=== PATIENT | female | born 1995 | race Hispanic/Latino ===

== ENCOUNTER 2018-01-23 17:40 | Emergency (ER) | payer MEDICAID, SELFPAY ==
[2018-01-23 18:08] LABS: #Basophils 0.1 thou/uL (0.0-0.2); #Lymphocytes 1.5 thou/uL (1.20-3.40); #Monocytes 0.7 thou/uL (0.11-0.59); #Neutrophils 7.1 thou/uL (1.40-6.50); %Basophils 0.8 % (0.0-1.0); %Eosinophils 0.2 % (0.0-10.0); %Lymphocytes 15.7 % (21.0-51.0); %Monocytes 7.1 % (0.0-10.0); %Neutrophils 76.2 % (42.0-75.0); Hemoglobin 13.4 g/dL (12.0-16.0); Mean Corpuscular HGB CONC 33.5 g/dL (32.0-36.0); Mean Corpuscular Hemoglobin 30.3 pg (27.0-31.0); Mean Corpuscular Volume 90.5 fl (81.0-99.0); Platelet Count 270 thou/uL (130-400); RBC Distribution Width 11.9 % (11.5-14.5); Red Blood Cell (RBC) Count 4.43 mill/uL (4.20-5.40); White Blood Cell (WBC) Count 9.3 thou/uL (4.8-10.8)
[2018-01-23 18:41] LABS: ALT (SGPT) 12 U/L (8-55); AST (SGOT) 19 U/L (5-34); Albumin 4.3 g/dL (3.5-5.0); Alkaline Phosphatase 57 U/L (40-150); Anion Gap 10 mmol/L (10-20); BUN (Urea Nitrogen) 10 mg/dL (7.0-18.7); Bilirubin, Total 0.4 mg/dL (0.2-1.2); Calc. Creatinine Clearance 0 mL/min (70-130); Calcium 9.6 mg/dL (7.8-10.44); Carbon Dioxide 24 mmol/L (22-29); Chloride 106 mmol/L (98-107); Estimated GFR-MDRD Greater than 90; Globulin 3.2 g/dL (2.4-3.5); Glucose 82 mg/dL (70-105); Potassium 4.4 mmol/L (3.5-5.1); Protein, Total 7.5 g/dL (6.0-8.3); Sodium 136 mmol/L (136-145)
[2018-01-23 19:11] LABS: Bilirubin Negative (Negative); Blood, Urine Moderate (Negative); Clarity CLOUDY (Clear); Glucose, Urine (Dipstick) Negative (Negative); Leukocyte Large (Negative); Nitrite Negative (Negative); Protein, Urine (Dipstick) Negative (Neg-Trace); Specific Gravity, Urine 1.011 (1.002-1.036)
[2018-01-23 19:13] LABS: Bacteria/HPF 4+ HPF (None Seen); Hyaline Casts/LPF 0-3 HYALINE CAST LPF (0-3 Hyaline); Pathc Cast-AUWi Flag 0.27 (0-2.49); Squamous Epithelial 0-3 HPF (0-3)
--- NOTE | 2018-01-23 21:26 | ULT ---
OBSTETRIC SONOGRAM TRANSABDOMINAL AND TRANSVAGINAL IMAGING 01/23/18 HISTORY: First trimester . Vaginal bleeding. FINDINGS: The urinary bladder is decompressed. Gestational sac within the fundal myometrium contains a tiny yol k sac and pole. Measurements correlate with 5 weeks, 6 days gestational age. No heart motion is yet visible. No free fluid is apparent within the pelvis. Small amount of subchorionic hemorrhage is visible. Right ovary is 3.4 cm. Left is 3.2 cm. Each has a normal sonographic appearance and demonst rates good color and spectral doppler flow. IMPRESSION: Single early intrauterine gestation. Estimated gestational age is 5 weeks, 6 days. POS: [facility]
[2018-01-26 14:35] LABS: Chlamydia by PCR Not Detected (NotDetected); GC by PCR Not Detected (NotDetected)
== END 2018-01-23 21:10 | disposition home or self-care (01) ==
LOC: ERS 17:40
DX: O26.851 Spotting complicating pregnancy, first trimester (principal); O23.41 Unspecified infection of urinary tract in pregnancy, first trimester; O99.341 Other mental disorders complicating pregnancy, first trimester; F41.9 Anxiety disorder, unspecified; F32.9 Major depressive disorder, single episode, unspecified; Z3A.01 Less than 8 weeks gestation of pregnancy
CPT/HCPCS: 36415; 76856; 80053; 81003; 81015; 84702; 85025; 87077; 87086; 87186; 87491; 87591

== ENCOUNTER 2018-08-17 16:17 | Emergency (ER) | payer MEDICAID, OTHER ==
--- NOTE | 2018-08-17 19:02 | ULT ---
BILATERAL LOWER EXTREMITY VENOUS DOPPLER EXAM: 08/17/18 HISTORY: Shortness of breath. Elevated D-dimer. Leg pain. Real time color doppler evaluation of the right and left lower extremity was performed from groin to calf. This includes evaluation of the common femoral, superficial and profunda femoral, saphenous pop liteal and posterior tibial veins. There is normal compressibility and augmentation. There is no evid ence of DVT. Flow is slow in both lower extremities but this is nonspecific. IMPRESSION: No evidence of DVT of either lower extremity. POS: [facility]
== END 2018-08-17 20:13 | disposition home or self-care (01) ==
LOC: ERS 16:17
DX: O99.89 Other specified diseases and conditions complicating pregnancy, childbirth and the puerperium (principal); R06.02 Shortness of breath; O99.343 Other mental disorders complicating pregnancy, third trimester; F41.9 Anxiety disorder, unspecified; Z3A.35 35 weeks gestation of pregnancy; Z79.899 Other long term (current) drug therapy
CPT/HCPCS: 93970; 94760

== ENCOUNTER 2018-09-14 10:06 | Inpatient (IN) | payer OTHER ==
[2018-09-14 10:48] VITALS: BMI 26.2
[2018-09-14] MEDS ORDERED: Butorphanol Tartrate 1 MG/ML VIAL IM PRN (11:04)
--- NOTE | 2018-09-14 11:07 | PDOC.LDHP ---
Labor and Delivery H&P HPI: Patient of cornelia Mares EGA 39 weeks CC: irregular contractions HPI: 3 yo G1 at full term with irregular contractions, no VB, no LOF; good FM, No OLEA, states feels "chest tight" with contractions. No recent trauma. No visual changes. Review of Systems: complete ROS done and as per HPI Current gestational age (weeks): 39 Due date: 09/21/18 Dating criteria: last menstrual period Grav: 1 Para: 0 Current complications: none Abnormal US findings: No Past Medical History: HX Panic attacks Current medications: pre-estefania vitamins Previous surgical history: other (eye surgery) Allergies/Adverse Reactions: Allergies Allergy/AdvReac Type Severity Reaction Status Date / Time No Known Drug Allergies Allergy Verified 09/14/18 10:43 - Physical Exam Vital signs reviewed and normal: yes (first BP was 134/94; then 127/89; 100%; pulse 103; afebrile) General: NAD Heart: RRR Lungs: CTAB Abdomen: gravid Extremeties: no edema FHT: category 1 [place] contractions every: evry 2-7 minutes; irregular - Vaginal Exam cm dilated: 1 Effacement: 25% Station: -2 - Assessment Latemt labor at full term; GBS neg; first BP with diastolic just over 90 - Plan Plan: observation in L&D (check BPs for 2 hrs; recheck CX in 2 hrs;check CMP and CBC as part of eval; pain meds prn)
[2018-09-14 11:39] LABS: #Basophils 0.1 thou/uL (0.0-0.2); #Eosinphils 0.1 thou/uL (0.0-0.7); #Monocytes 0.4 thou/uL (0.11-0.59); #Neutrophils 4.7 thou/uL (1.40-6.50); %Basophils 1.2 % (0.0-1.0); %Eosinophils 0.9 % (0.0-10.0); %Lymphocytes 16.4 % (21.0-51.0); %Monocytes 6.5 % (0.0-10.0); %Neutrophils 75.1 % (42.0-75.0); Hemoglobin 10.1 g/dL (12.0-16.0); Mean Corpuscular HGB CONC 33.4 g/dL (32.0-36.0); Mean Corpuscular Hemoglobin 26.4 pg (27.0-31.0); Mean Corpuscular Volume 79.2 fL (78.0-98.0); Mean Platelet Volume 7.6 fL (7.4-10.4); Platelet Count 248 thou/uL (130-400); RBC Distribution Width 13.2 % (11.5-14.5); Red Blood Cell (RBC) Count 3.83 mill/uL (4.20-5.40); White Blood Cell (WBC) Count 6.3 thou/uL (4.8-10.8)
[2018-09-14 11:58] LABS: ALT (SGPT) 9 U/L (8-55); AST (SGOT) 16 U/L (5-34); Albumin 3.2 g/dL (3.5-5.0); Alkaline Phosphatase 264 U/L (40-150); Anion Gap 9 mmol/L (10-20); BUN (Urea Nitrogen) 6 mg/dL (7.0-18.7); Bilirubin, Total 0.4 mg/dL (0.2-1.2); Calc. Creatinine Clearance 121 mL/min (70-130); Calcium 8.6 mg/dL (7.8-10.44); Carbon Dioxide 22 mmol/L (22-29); Chloride 105 mmol/L (98-107); Estimated GFR-MDRD Greater than 90; Globulin 3.2 g/dL (2.4-3.5); Glucose 98 mg/dL (70-105); Potassium 4.2 mmol/L (3.5-5.1); Protein, Total 6.4 g/dL (6.0-8.3); Sodium 132 mmol/L (136-145)
--- NOTE | 2018-09-14 12:06 | PDOC.EVN ---
Event Note - Event Note Event Note: CBC and CMP are normal
--- NOTE | 2018-09-14 13:10 | PDOC.EVN ---
Event Note - Event Note Event Note: Recheck is unchanged but borderline pressures. I will admit to Iesha Light. I will order EKG for "chest tightness" with contractions.
[2018-09-14] MEDS ORDERED: HYDROcodone/Acetaminophen 5/325 mg Tablet PO PRN ×2 (13:12)
[2018-09-14] MEDS ORDERED: Promethazine HCl 25 MG/ML VIAL IM PRN ×2 (13:12→20:17)
[2018-09-14] MEDS ORDERED: Ibuprofen 800 MG TAB PO PRN (13:12)
[2018-09-14] MEDS ORDERED: NS / Oxytocin 40 units/1000ml 1,000 ML IV PRN (13:12)
[2018-09-14] MEDS ORDERED: Lidocaine 1% (PF) 30 ML VIAL SC PRN (13:12)
[2018-09-14] MEDS: Lactated Ringer's 1,000 ML IV SCH ×2 (13:40→21:22)
[2018-09-14] MEDS ORDERED: NIFEdipine 10 MG CAP ONE (14:32)
[2018-09-14] MEDS ORDERED: NIFEdipine XL 30 MG TAB PO SCH (14:33)
[2018-09-14 14:40] LABS: Syphilis Antibody Nonreactive (Nonreactive); Syphilis Antibody Index 0.03 S/CO (<1.00 Non-Reactive)
[2018-09-14 14:41] LABS: HBSAg Index 0.19 S/CO (0-0.99); HIV (1/2) Antibody/Antigen Non-Reactive (NonReactive); HIV 1/2 INDEX 0.17 S/CO (<1.00); Hep B Surf Ag Non-Reactive S/CO (NonReactive)
--- NOTE | 2018-09-14 14:44 | PDOC.EVN ---
Event Note - Event Note Event Note: 09/14/2018 at appx 14:30 Notified by patient's nurse that BP readings 30 minutes apart >160/110. Patient asymptomatic and denies RUQ pain, edema, headaches, scotoma, or shortness of breath currently. Will order 20 mg of Nifedipine for BP control. Order placed for urine protein and urine creatinine to assess for pre-eclampsia. Continue to monitor BP. Monitor for signs/symptoms or pre-eclampsia with severe features. Marika Rhodes, DO PGY-2 <Marika Rhodes - Last Filed: 09/14/18 14:39> - Event Note Event Note: Agree. Iesha light given update on status. Once intrapartum, will consider MagSulfate if pressures remain sever range. Will also reeval for cervical balloon as yareli too much for cytotec protocol <Pardeep Kurtz - Last Filed: 09/14/18 14:54>
[2018-09-14] MEDS ORDERED: NIFEdipine 10 MG CAP PO SCH (14:45)
[2018-09-14 15:01] LABS: Creatinine, Urine 27.11 mg/dL (47-110)
--- NOTE | 2018-09-14 16:44 | PDOC.EVN ---
Event Note - Event Note Event Note: OBGYN Attending: Cervical Balloon Placed by and [place]: See [place] note Placed at 1630 No complications 80ml per balloon Placed per IFU instructions with speculum BP ok No ROM upon insertion
[2018-09-14] MEDS: Butorphanol Tartrate 1 MG/ML VIAL SLOW IVP PRN ×2 (16:46→18:10)
--- NOTE | 2018-09-14 17:03 | PDOC.EVN ---
Event Note - Event Note Event Note: Patient not good candidate for cytotec or pitocin. >3 contractions in 10 minute period. No cervical change since admission. Dilation still 1 cm. Balloon placed without difficulty after visualizing cervical os with use of speculum. 80 cc's in vaginal and uterine balloon. Stadol given for pain relief after procedure. Procedure done at approximately 16:40. Marika Rhodes, PGY-2
--- NOTE | 2018-09-14 17:19 | PDOC.EVN ---
Event Note - Event Note Event Note: Patient with urine protein/ urine creatinine ratio of 2.11. Patient meets definition for severe preeclampsia based on BP >160/110 mmHg. Will start on Mg once intrapartum. Marika Rhodes DO PGY-2 <Marika Rhodes - Last Filed: 09/14/18 17:14> - Event Note Event Note: Info relayed to cornelia brown. MagSo4 in labor due to BP criteria met previously. Amount of proteinuria no longer a criteria for severe HTN/PRE <Pardeep Kurtz - Last Filed: 09/14/18 18:43>
[2018-09-14] MEDS ORDERED: Fentanyl 4 mcg/Bup 0.1% Cadd 100 ML ONE (19:11)
[2018-09-14] MEDS ORDERED: Acetaminophen 325 MG TAB PO PRN (20:17)
[2018-09-14] MEDS ORDERED: diphenhydrAMINE 50 MG/ML VIAL IVP PRN (20:17)
[2018-09-14] MEDS ORDERED: Ondansetron HCl/PF 4 MG/2 ML Vial IVP PRN (20:17)
[2018-09-14] MEDS ORDERED: ePHEDrine/0.9% NaCl/PF SYRINGE 50 mg/10 ml SLOW IVP PRN (20:17)
[2018-09-14] MEDS ORDERED: Naloxone HCl 0.4 mg/ml Vial IVP PRN ×2 (20:17)
[2018-09-14] MEDS ORDERED: Lactated Ringer's 500 ML IV PRN (20:17)
[2018-09-14] MEDS ORDERED: Eucerin (Mineral Oil/Petrolatum,White) 30 gm Jar TOP PRN (20:17)
[2018-09-14] MEDS ORDERED: Communication Order-Pharmacy FS SCH (20:30)
[2018-09-15] MEDS: Lactated Ringer's 1,000 ML IV SCH ×2 (02:09→10:16)
[2018-09-15] MEDS ORDERED: Fentanyl 4 mcg/Bup 0.1% Cadd 100 ML ONE ×3 (03:58→16:29)
[2018-09-15] MEDS: NS w/ Oxytocin 10 units 500 ML IV SCH (05:22)
--- NOTE | 2018-09-15 05:40 | PDOC.EVN ---
Event Note - Event Note Event Note: Balloon removed at approximately 4:30 AM. Cervical check at that time /-2. Pitocin started around 5:00 AM. Patient comfortable. BP was 153/96. Pulse of 97. Patient with BP's >160/110 periodically throughout the night that resolve with position changes and cuff placement. Continue to monitor. Mg to be started intrapartum. Marika Rhodes, DO PGY-2
[2018-09-15] MEDS ORDERED: Calcium Gluc 4.6 MEQ/10 ML (100 MG/ML) SLOW IVP PRN (06:24)
--- NOTE | 2018-09-15 06:25 | PDOC.EVN ---
Event Note - Event Note Event Note: Doing well. I have ordered Mag Sulfate as now on pitocin.
[2018-09-15] MEDS: Magnesium Sulfate 20 GM/WATER 500 ML BAG IVPB SCH (06:43)
[2018-09-15] MEDS ORDERED: Ondansetron HCl/PF 4 MG/2 ML Vial ONE ×2 (09:31→20:58)
[2018-09-15] MEDS ORDERED: PHENYLEPHRINE-NS 100 MCG/ML 10 ML SYRINGE ONE ×3 (09:31→21:25)
[2018-09-15] MEDS ORDERED: Ketorolac Tromethamine 30 MG/ML VIAL ONE ×2 (09:31→20:58)
[2018-09-15] MEDS ORDERED: Dexamethasone 20 MG/5 ML VIAL ONE (09:31)
[2018-09-15] MEDS: Fentanyl 4 mcg/Bupivacaine 0.1% Cassette 100 ML EPIDURAL SCH ×2 (10:15→16:37)
[2018-09-15] MEDS: Dextrose 5%-Lactated Ringers 1,000 ML IV SCH (13:31)
[2018-09-15] MEDS: Magnesium Sulfate 20 gm/500 ml 20 GM/500 ML BAG IVPB SCH (14:44)
--- NOTE | 2018-09-15 15:23 | PDOC.LDPN ---
Labor & Delivery Progress Note - Subjective Subjective: comfortable (sleeping thorugh contractions) - Objective Abnormal vital signs: BP 140/85 pulse 79. General: resting Uterine fundus: non tender Dilation: 4 Effacement: 90% Station: -1 FHT: category 2 (Periods of minimal bariability) AROM: meconium stained fluid (light mec.) IUPC placed: yes FSE placed: yes Resuscitative measures: maternal position change - Assessment (1) Proteinuria Code(s): R80.9 - PROTEINURIA, UNSPECIFIED Current Visit: Yes Status: Acute Plan: continue plan of care (continue Pitocin for augmentation. with AROM and internal monitors. )
[2018-09-15] MEDS ORDERED: Labetalol HCl 100 MG/20 ML VIAL ONE (16:56)
[2018-09-15] MEDS: Labetalol HCl 100 MG/20 ML VIAL SLOW IVP PRN ×2 (16:59→18:48)
--- NOTE | 2018-09-15 16:59 | PDOC.EVN ---
Event Note - Event Note Event Note: Patient with persistent severe range BPs. Will give Labetalol 20mg.
[2018-09-15] MEDS ORDERED: Bicitra 30 ML UDCUP ONE (20:32)
[2018-09-15] MEDS ORDERED: CEFAZOLIN/Water 2 GM/20 ML SYRINGE ONE (20:32)
[2018-09-15] MEDS ORDERED: Lidocaine 2% 10 ML INJ ONE ×2 (20:43)
[2018-09-15] MEDS ORDERED: Dexamethasone 4 mg/ml Vial ONE (20:58)
[2018-09-15] MEDS ORDERED: Azithromycin 500 MG in Sodium Chloride 0.9% 250 ML 250 ML IVPB SCH (21:00)
[2018-09-15] MEDS ORDERED: Bicitra 30 ML UDCUP PO SCH (21:00)
[2018-09-15] MEDS ORDERED: CEFAZOLIN/Water 2 GM/20 ML SYRINGE SLOW IVP SCH (21:00)
[2018-09-15] MEDS ORDERED: Ondansetron HCl/PF 4 MG/2 ML Vial IVP PRN ×3 (21:39→23:19)
[2018-09-15] MEDS ORDERED: Promethazine HCl 25 MG/ML VIAL SLOW IVP PRN (21:39)
[2018-09-15] MEDS ORDERED: Promethazine HCl 25 MG/ML VIAL IM PRN ×2 (21:39→21:40)
[2018-09-15] MEDS ORDERED: Eucerin (Mineral Oil/Petrolatum,White) 30 gm Jar TOP PRN (21:40)
[2018-09-15] MEDS ORDERED: Naloxone HCl 0.4 mg/ml Vial IV PRN (21:40)
[2018-09-15] MEDS ORDERED: Ketorolac Tromethamine 30 MG/ML VIAL IVP PRN (21:40)
[2018-09-15] MEDS ORDERED: Naloxone HCl 0.4 mg/ml Vial IVP PRN ×2 (21:40)
[2018-09-15] MEDS ORDERED: Promethazine HCl 25 MG SUPP PR PRN (21:40)
[2018-09-15] MEDS ORDERED: diphenhydrAMINE 50 MG/ML VIAL IVP PRN (21:40)
[2018-09-15] MEDS ORDERED: Communication Order-Pharmacy FS SCH (21:45)
[2018-09-15] MEDS ORDERED: Morphine PF 1 MG/ML SYR ONE (22:02)
[2018-09-15] MEDS ORDERED: Calcium Gluconate 4.6 MEQ in Sodium Chloride 0.9% 100 ML IVPB PRN (22:11)
[2018-09-15 22:12] LABS: Actual Bicarbonate (HCO3a) 24.7 mEq/L (22-28)
[2018-09-15 22:13] LABS: Analyzer IN Cardio OR; Base Excess (BEa) -3.2 mEq/L (-2.0 to +3.0)
[2018-09-15] MEDS ORDERED: Magnesium Sulfate 20 gm/500 ml 20 GM/500 ML BAG IVPB SCH (22:15)
--- NOTE | 2018-09-15 22:44 | OP ---
DATE OF SERVICE: 09/14/2018 PREOPERATIVE DIAGNOSES: 1. Severe preeclampsia. 2. Term intrauterine . 3. Arrest of dilatation. POSTPROCEDURE DIAGNOSES: 1. Severe preeclampsia. 2. Term intrauterine . 3. Arrest of dilatation. PROCEDURE: Primary low transverse . SURGEON: Ana Paula Roldan M.D. RN IMMUNOLOGY: KELLIE Glover. ANESTHESIA: Epidural. COMPLICATIONS: None. ESTIMATED BLOOD LOSS: Per nursing report. DESCRIPTION OF PROCEDURE: The patient was taken to the operating room, where epidural anesthesia was found to be adequate. She was prepared and draped in the normal sterile fashion in the dorsal supine position with leftward tilt. A Pfannenstiel skin incision was made with the scalpel and carried down to the underlying layer of fascia. The fascia was incised in the midline and extended laterally with Hancock scissors. The fascia was then dissected off the rectus muscles both bluntly and sharply. The rectus muscles were at the midline. Peritoneum was identified and entered sharply with Metzenbaum scissors. The incision was extended superiorly and inferiorly with good visualization of the bladder and Jay O retractor was placed in the abdomen. An incision was made in the lower uterine segment in a transverse fashion with the scalpel and extended bluntly. The infant's head was delivered atraumatically followed easily with the body. The nose and mouth were suctioned with bulb suction. The cord was clamped and cut. The was handed off to the awaiting nursery team. The placenta was delivered spontaneously and the uterus was cleared of all clots and debris. The hysterotomy was repaired in a running locked fashion with 1-0 Monocryl in two layers. The Jay retractor was removed from the abdomen. The gutters were cleared of all clots. The fascia was then reapproximated in a running fashion with 0 PDS. The subcutaneous tissue was reapproximated with 2-0 plain gut and the skin was closed with 4-0 Monocryl in a subcuticular fashion. The patient tolerated the procedure well. Sponge, lap, and needle counts were correct x2. Patient was taken to recovery room in stable condition. [facility] CENTERJose J
[2018-09-15] MEDS ORDERED: L&D-Morphine 4 MG/ML VIAL SLOW IVP PRN (23:19)
[2018-09-15] MEDS ORDERED: Meperidine HCl/PF 25 MG/ML VIAL SLOW IVP PRN (23:19)
[2018-09-15] MEDS ORDERED: HYDROmorphone 2 MG/ML VIAL SLOW IVP PRN (23:19)
[2018-09-15] MEDS ORDERED: Ketorolac Tromethamine 30 MG/ML VIAL IVP SCH (23:30)
[2018-09-15] MEDS ORDERED: Meperidine HCl/PF 25 MG/ML VIAL ONE (23:42)
[2018-09-16] MEDS ORDERED: Morphine 4 MG/ML VIAL SLOW IVP PRN (01:25)
[2018-09-16] MEDS: Magnesium Sulfate 20 GM/WATER 500 ML BAG IVPB SCH (01:31)
[2018-09-16 06:08] LABS: #Lymphocytes 0.6 thou/uL (1.20-3.40); #Monocytes 0.5 thou/uL (0.11-0.59); #Neutrophils 16.9 thou/uL (1.40-6.50); %Eosinophils 0.2 % (0.0-10.0); %Lymphocytes 3.6 % (21.0-51.0); %Monocytes 2.5 % (0.0-10.0); %Neutrophils 93.3 % (42.0-75.0); Hemoglobin 7.3 g/dL (12.0-16.0); Mean Corpuscular HGB CONC 32.4 g/dL (32.0-36.0); Mean Corpuscular Hemoglobin 25.7 pg (27.0-31.0); Mean Corpuscular Volume 79.4 fL (78.0-98.0); Mean Platelet Volume 7.3 fL (7.4-10.4); Platelet Count 172 thou/uL (130-400); RBC Distribution Width 13.2 % (11.5-14.5); Red Blood Cell (RBC) Count 2.83 mill/uL (4.20-5.40); White Blood Cell (WBC) Count 18.1 thou/uL (4.8-10.8)
[2018-09-16] MEDS ORDERED: NS / Oxytocin 40 units/1000ml 1,000 ML IV PRN (09:38)
[2018-09-16] MEDS: Magnesium Sulfate 20 gm/500 ml 20 GM/500 ML BAG IVPB SCH (10:40)
--- NOTE | 2018-09-16 13:21 | PDOC.PP ---
Post Progress Note Post Day #: 1 Subjective: well. no hurting unless she tries to move. bottle feeding PO intake tolerated: yes Flatus: yes Ambulation: no Weight Weight 134 lb BP ranges over the last 12 hours 121-138/ 77-88 - Physical Examination General: NAD Cardiovascular: no m/r/g Respiratory: non-labored breathing Extremities: negative homans (B) Skin: CS incision dry & intact Psychiatric: A&Ox3, normal affect Result Diagrams: 09/16/18 05:54 09/14/18 11:26 Additional Labs: Post Labs Blood Type O POSITIVE 09/14/18 11:23 Hep Bs Antigen Non-Reactive S/CO (NonReactive) 09/14/18 13:48 (1) Proteinuria Code(s): R80.9 - PROTEINURIA, UNSPECIFIED Status: Acute (2) Preeclampsia Code(s): O14.90 - UNSPECIFIED PRE-ECLAMPSIA, UNSPECIFIED TRIMESTER Status: Acute (3) delivery delivered Code(s): O82 - ENCOUNTER FOR DELIVERY WITHOUT INDICATION Status: Acute - Assessment/Plan A: G1 now p1 SP LTCS for failed IOL Preeclampsia anemia P: Continue LICU recovery until 24 hours post delivery. Blood transfusion if symptomatic transfer to at 24 hours post delivery.
[2018-09-16] MEDS ORDERED: Lidocaine 2% MPF 10 ML AMP (For Epidural Use) ONE (14:46)
[2018-09-16] MEDS ORDERED: Sodium Chloride 0.9% (PF) 10 ML VIAL ONE (14:46)
[2018-09-16] MEDS ORDERED: Bupivacaine/Epinephrine 0.25% 30 ML VIAL ONE (14:46)
--- NOTE | 2018-09-16 17:18 | PDOC.PP ---
Post Progress Note Post Day #: 0 Subjective: felling well, good uop, no lea or scotoma PO intake tolerated: yes Flatus: yes Ambulation: yes Weight Weight 134 lb Result Diagrams: 09/16/18 05:54 09/14/18 11:26 Additional Labs: Post Labs Blood Type O POSITIVE 09/14/18 11:23 Hep Bs Antigen Non-Reactive S/CO (NonReactive) 09/14/18 13:48 (1) Preeclampsia Code(s): O14.90 - UNSPECIFIED PRE-ECLAMPSIA, UNSPECIFIED TRIMESTER Status: Acute Qualifiers: Trimester: third trimester Qualified Code(s): O14.93 - Unspecified pre- eclampsia, third trimester - Assessment/Plan doing well ~20 hr post cs. will dc mg and transfer to pp
[2018-09-16] MEDS ORDERED: Ondansetron HCl/PF 4 MG/2 ML Vial IVP PRN (17:19)
[2018-09-16] MEDS ORDERED: diphenhydrAMINE 25 MG CAP PO PRN (17:19)
[2018-09-16] MEDS ORDERED: Lactated Ringer's 1,000 ML IV SCH (17:19)
[2018-09-16] MEDS ORDERED: Adacel (T-DAP) 0.5 ML VIAL IM ONE (17:19)
[2018-09-16] MEDS ORDERED: Measles/Mumps/Rubella 10 MCG/0.5 ML VIAL SC ONE (17:19)
[2018-09-16] MEDS: HYDROcodone/Acetaminophen 5/325 mg Tablet PO PRN (19:45)
[2018-09-16] MEDS: Simethicone Chewable 80 MG TAB PO PRN (20:46)
[2018-09-16] MEDS: Ibuprofen 800 MG TAB PO SCH (20:46)
[2018-09-16] MEDS: Docusate Calcium (SURFAK) 240 MG CAP PO SCH (21:10)
[2018-09-17] MEDS: NS w/ Oxytocin 10 units 500 ML IV SCH (02:44)
[2018-09-17] MEDS: Dextrose 5%-Lactated Ringers 1,000 ML IV SCH (02:44)
[2018-09-17] MEDS: HYDROcodone/Acetaminophen 5/325 mg Tablet PO PRN ×4 (03:33→17:07)
[2018-09-17] MEDS: Ibuprofen 800 MG TAB PO SCH ×4 (05:24→22:06)
[2018-09-17] MEDS: Prenatal Vitamin 1 TAB PO SCH (08:08)
[2018-09-17] MEDS: Ferrous Sulfate 325 MG TAB PO SCH ×2 (08:08→17:07)
[2018-09-17] MEDS: Docusate Calcium (SURFAK) 240 MG CAP PO SCH ×2 (08:08→21:19)
--- NOTE | 2018-09-17 09:00 | PDOC.PP ---
Post Progress Note Post Day #: 2 Subjective: Doing well. denies OLEA, vision changes, RUQ pain. Denies being dizziness with ambulation. Reports burning pain over incision. Overall, LTCS well controlled. PO intake tolerated: yes Flatus: no Ambulation: yes Vital Signs (12 hours) Temp Pulse Resp BP Pulse Ox 09/17/18 08:44 98.2 F 75 18 132/79 100 09/16/18 23:15 98.2 F 80 20 127/78 Weight Weight 134 lb - Physical Examination Cardiovascular: no m/r/g, RRR Respiratory: clear to auscultation bilaterally, non-labored breathing Abdominal: + bowel sounds, lochia (moderate) Fundus firm & at: -1 Extremities: negative homans (B) Skin: CS incision dry & intact Neurological: no gross focal deficits Psychiatric: A&Ox3, normal affect Result Diagrams: 09/16/18 05:54 09/14/18 11:26 Additional Labs: Post Labs Blood Type O POSITIVE 09/14/18 11:23 Hep Bs Antigen Non-Reactive S/CO (NonReactive) 09/14/18 13:48 (1) Proteinuria Code(s): R80.9 - PROTEINURIA, UNSPECIFIED Status: Acute (2) Preeclampsia Code(s): O14.90 - UNSPECIFIED PRE-ECLAMPSIA, UNSPECIFIED TRIMESTER Status: Acute Qualifiers: Trimester: third trimester Qualified Code(s): O14.93 - Unspecified pre- eclampsia, third trimester (3) delivery delivered Code(s): O82 - ENCOUNTER FOR DELIVERY WITHOUT INDICATION Status: Acute - Assessment/Plan A: sp LTCS with preeclampsia. normotensive No flatus - +bowel sounds. P: routine care Walk in hallway - If no flatus - today, will order KUB discharge home tomorrow if indicated Rx sent from office (Alexander tran#3, simalcon, Senlani). incision check 10 days at [facility] 6 week visit.
[2018-09-17] MEDS: Simethicone Chewable 80 MG TAB PO PRN (21:19)
[2018-09-18] MEDS: Ibuprofen 800 MG TAB PO SCH ×2 (05:58→13:59)
[2018-09-18] MEDS: HYDROcodone/Acetaminophen 5/325 mg Tablet PO PRN ×3 (06:03→16:30)
--- NOTE | 2018-09-18 06:23 | PDOC.PP ---
Post Progress Note Post Day #: POD3 Subjective: Doing well, + flatus. PO intake tolerated: yes Flatus: yes Ambulation: yes Vital Signs (12 hours) Temp Pulse Resp BP Pulse Ox 09/17/18 20:15 98.4 F 81 16 143/75 H 100 Weight Weight 60.781 kg - Physical Examination General: NAD Abdominal: no distention Skin: CS incision dry & intact Psychiatric: normal affect Result Diagrams: 09/16/18 05:54 09/14/18 11:26 Additional Labs: Post Labs Blood Type O POSITIVE 09/14/18 11:23 Hep Bs Antigen Non-Reactive S/CO (NonReactive) 09/14/18 13:48 - Assessment/Plan Doing well, ready for home. DC home. Precautions. RTC 10 days at [facility] for incision check.
[2018-09-18] MEDS: Dextrose 5%-Lactated Ringers 1,000 ML IV SCH (06:24)
[2018-09-18] MEDS: Misoprostol 100 MCG TAB VAG SCH (06:26)
[2018-09-18] MEDS: Docusate Calcium (SURFAK) 240 MG CAP PO SCH (09:07)
[2018-09-18] MEDS: Ferrous Sulfate 325 MG TAB PO SCH (09:07)
[2018-09-18] MEDS: Prenatal Vitamin 1 TAB PO SCH (09:07)
[2018-09-18 09:24] VITALS: TEMP 98.5
[2018-09-18 14:19] VITALS: BP 150/71
--- NOTE | 2018-09-18 15:23 | PDOC.EVN ---
Event Note - Event Note Event Note: Patient with single BP >160, all mild range otherwise. No symptoms and desires to go home. Discussed with patient that she can be discharged but would need to go to the office tomorrow for a BP check. She will also check BPs at home and return for any severe range or for development of any symptoms.
== END 2018-09-18 17:15 | disposition home or self-care (01) | DRG 788 ==
LOC: L&D/OP 10:06 → L&D 13:29 → 3SW 09-16 20:21
PROVIDERS: ADMIT Student in an Organized Health Care Education/Training Program; ATTEND Student in an Organized Health Care Education/Training Program
PROC: 10D00Z1 Extraction of Products of Conception, Low, Open Approach (ICD-10-PCS; principal; 2018-09-14)
DX: O14.14 Severe pre-eclampsia complicating childbirth (principal); O62.0 Primary inadequate contractions; Z3A.39 39 weeks gestation of pregnancy; Z37.0 Single live birth; O77.0 Labor and delivery complicated by meconium in amniotic fluid
CPT/HCPCS: 36415; 51702; 80053; 81003; 82570; 82805; 83735; 84156; 85025; 86780; 86850; 86900; 86901; 87340; 87389; 99285; C1726; J0456; J0595; J1100; J1885; J2001; J2175; J2270; J2274; J2405; J2550; J3475; J7050